=== PATIENT | male | born 1960 | race African-American/Black ===

== ENCOUNTER 2020-01-19 07:22 | Inpatient (IN) | payer MEDICAID ==
[~2020-01-19] VITALS: Ht 185.4 cm; Wt 96.9 kg
[2020-01-19] VITALS (27 sets, daily range): BP systolic 156–251; BP diastolic 84–123; BMI 29.4
[~2020-01-19 07:22] MED LIST: BACTRIM DS TABL1 TAB PO; BENTYL10 MG PO; HALDOL DECAN50 MG/ML; LOPID600 MG; NORVASC5 MG PO; NOVOLOG MIX 70/10 ML; PRILOSEC20 MG PO; TYLENOL 325 MG325 MG PO
--- NOTE | 2020-01-19 07:25 | NUR ---
PT ARRIVED WITH CORRECTIONAL OFFICERS AND CUFFS TO [facility]
--- NOTE | 2020-01-19 07:53 | NUR ---
LABS DRAWN INCLUDING BC X1
--- NOTE | 2020-01-19 08:06 | NUR ---
PT A/OX3. DR TREVINO AT BS EXPLAINING NEED FOR INTUBATION,.
[2020-01-19 08:21] LABS: BASOPHILS 0.2 % (0-2); EOSINOPHILS 0.7 % (0-7); HEMATOCRIT 34.4 % (42.0-54.0); HEMOGLOBIN 11.2 g/dL (13.5-17.5); IMMATURE GRANULOCYTES 0.3 % (0-5); LYMPHOCYTES 3.5 % (15-50); MCH 29.4 pg (26.0-34.0); MCHC 32.6 g/dL (31.0-37.0); MCV 90.3 fL (80.0-100.0); MEAN PLATELET VOLUME 9.9 fL (7.4-10.4); MONOCYTES 4.3 % (2-11); RBC 3.81 10x6/uL (4.20-6.10); RDW 17.6 % (11.5-14.5); WBC 10.3 10x3/uL (4.8-10.8)
[2020-01-19 08:24] LABS: PLATELET COUNT 173 10x3/uL (130-400)
[2020-01-19 08:30] LABS: APTT 34.5 SECONDS (22.8-39.4); INR 1.19 (0.85-1.17)
[2020-01-19 09:07] LABS: CALC OSMOLALITY 286 mosm/kg (275-300); CALCIUM 7.9 mg/dL (8.5-10.1); CARBON DIOXIDE 24.3 mmol/L (21.0-32.0); CHLORIDE - SERUM 99 mmol/L (98-107); GLUCOSE 130 mg/dL (74-106); POTASSIUM - SERUM 5.9 mmol/L (3.5-5.1); SODIUM 134 mmol/L (136-145); UREA NITROGEN 59 mg/dL (7-18); eGFR NON AFRICAN AMERICAN 6 mL/min (90-120)
[2020-01-19 09:25] LABS: ALBUMIN 3.7 g/dL (3.4-5.0); ALKALINE PHOSPHATASE 203 U/L (30-120); ALT (SGPT) 32 U/L (10-68); BILIRUBIN - TOTAL 0.62 mg/dL (0.2-1.3); CKMB 1.7 U/L (0.0-3.6); CREATINE KINASE 144 UL (21-232); PROTEIN - SERUM 7.9 g/dL (6.4-8.2)
[2020-01-19 09:26] LABS: PRO BNP 35480 pg/mL (0-125)
--- NOTE | 2020-01-19 09:31 | NUR ---
PT CONTINUES TO BITE ET TUBE EYES OPEN. CONTINUE TO TITRATE PROPFOL DRIP TO A SB OF 3.
--- NOTE | 2020-01-19 09:42 | NUR ---
SPOKE WITH DAVID, PHARMACIST RE: ORDER FOR REMDESIVIR REPORTS MED IS CONTRAINDICATED FOR CREATINE CLEARANCE LESS THAN 30. DR TREVINO NOTIFIED AND ORDER HELD FOR NOW
--- NOTE | 2020-01-19 09:56 | NUR ---
RESTING IN BED WITH EYES CLOSED. NAD NOTED
--- NOTE | 2020-01-19 10:23 | NUR ---
RESTLESS, BITING TUBE.
--- NOTE | 2020-01-19 12:15 | NUR ---
ECHO PERFORMED AT PER TECH
--- NOTE | 2020-01-19 12:24 | NUR ---
DIALYSIS NURSE AT BEDSIDE.
--- NOTE | 2020-01-19 12:51 | NUR ---
AWAKE, BITING TUBE. PROPOFOL TITRATED PER ORDERS. BALDEMAR FLAME DEGREASER AT BS
--- NOTE | 2020-01-19 13:03 | NUR ---
REPORT CALLED TO SHAGGY GEORGES
--- NOTE | 2020-01-19 13:20 | NUR ---
TRANSPORTED TO ICU #[id number] CONDITION STABLE
--- NOTE | 2020-01-19 13:45 | NUR ---
PT RECEIVED FROM ER, PT INTUBATED AND SEDATED ON PROPOFOL AT THIS TIME. BILAT WRIST RESTRAINTS IN PLACE. PT MOVED TO BED AND CONNECTED TO MONITORS
--- NOTE | 2020-01-19 15:00 | NUR ---
PT REASSESSMENT COMPLETED AT THIS TIME, PT GETING DIALYSIS AT THIS TIME, NURSE AT BEDSIDE, NO CHANGES NOTED FROM PREVIOUS EXAM
--- NOTE | 2020-01-19 17:00 | NUR ---
PT RESTING ON SEDATION AND VENT SUPPORT, NO CHANGES NOTED
--- NOTE | 2020-01-19 19:00 | NUR ---
PT ASSESSMENT COMPLETED AT THIS TIME, PT SEDATED ON VENT SUPPORT, NO CHNAGES NOTED
--- NOTE | 2020-01-19 21:23 | NUR ---
DR BURT CALLED ABOUT MEDICINE FOR BP ELEVATION WITH TRENDS OVER 200 SYS, NEW ORDERS NOTED
--- NOTE | 2020-01-19 23:00 | NUR ---
PT REASSESMENT COMPLETED AT THIS TIME, NO CHANGES NOTED FROM PREVIOUS EXAM, VSS, PT SEDATED ON VENT SUPPORT
[2020-01-20] VITALS (23 sets, daily range): BP systolic 131–193; BP diastolic 75–103; BMI 29.6
[2020-01-20 05:16] LABS: BASOPHILS 0 % (0-2); EOSINOPHILS 0 % (0-7); IMMATURE GRANULOCYTES 0.1 % (0-5); LYMPHOCYTES 5.7 % (15-50); MCH 28.1 pg (26.0-34.0); MCHC 31.1 g/dL (31.0-37.0); MCV 90.3 fL (80.0-100.0); MEAN PLATELET VOLUME 9.6 fL (7.4-10.4); MONOCYTES 5.2 % (2-11); RDW 17.8 % (11.5-14.5)
[2020-01-20 05:24] LABS: HEMOGLOBIN 8.7 g/dL (13.5-17.5); PLATELET COUNT 128 10x3/uL (130-400); WBC 7.3 10x3/uL (4.8-10.8)
[2020-01-20 06:25] LABS: ALBUMIN 3.2 g/dL (3.4-5.0); ANION GAP 16.2 mmol/L (8-16); BILIRUBIN - TOTAL 0.67 mg/dL (0.2-1.3); C-REACTIVE PROTEIN 0.8 mg/dL (0.0-0.9); CARBON DIOXIDE 24.8 mmol/L (21.0-32.0); CREATININE - SERUM 7.1 mg/dL (0.6-1.3); MAGNESIUM - SERUM 1.8 mg/dL (1.8-2.4); PROTEIN - SERUM 6.9 g/dL (6.4-8.2); T4 THYROXIN - FREE 1.15 ng/dL (0.76-1.46); THYROID STIMULATING HORMONE 0.34 uIU/mL (0.36-3.74)
--- NOTE | 2020-01-20 07:30 | NUR ---
REPORT RECEIVED. PT IN DROPLET PRECAUTIONS FOR COVID. PT IS INTUBATED. SETTINGS PER RT. PT HAS A RIGHT FOREARM IV WITH PROPOFOL INFUSING INTO HIS RIGHT FOREARM. PT IS RENAL. HAS A RIGHT CHEST PORT THAT IS USED FOR DIALYSIS WHICH IS MWF. PT HAS NG TO LIS. PT IS ANURIC. VSS. WILL CONTINUE TO MONITOR.
--- NOTE | 2020-01-20 09:15 | NUR ---
PT RESTING QUIETLY. VSS. WILL CONTINUE TO MONITOR.
--- NOTE | 2020-01-20 13:22 | NUR ---
LOWERING SEDATION MEDICATION TO ATTEMPT CPAP TRIALS. VSS. WILL CONTINUE TO MONITOR.
--- NOTE | 2020-01-20 14:09 | NUR ---
ELEVATED BP. PRN HYDRALAZINE GIVEN. CURRENT BP READING 193/74. WILL MONITOR. 1200 PUT OUT VIA NG TUBE CANNISTER. NEW CANNISTER PLACED AND HOOKED BACK UP TO LIS.
--- NOTE | 2020-01-20 14:53 | EC ---
PATIENT:RASHID DON DATE OF SERVICE: 01/19/20 SEX: M MEDICAL RECORD: [id number] DATE OF : 62 LOCATION:[facility] D230 AGE OF PATIENT: 59 ADMISSION DATE: 01/19/20 REFERRING PHYSICIAN: INTERPRETING PHYSICIAN: NOEMI HALL MD ECHOCARDIOGRAM REPORT ECHO CHARGES 4 ECHO COMPLETE Date: 01/19/20 CLINICAL DIAGNOSIS: CARDIOMEGALY ECHOCARDIOGRAPHIC MEASUREMENTS (adult normal given) AC root (d.<3.7cm) 2.6 cm LV Septum d (<1.2 cm> 1.2 cm Valve Excursion 1.7 cm LV Septum (systole) 1.8 cm Left Atria (s.<4.0cm> 4.1 cm LVPW d(<1.2cm) 1.0 cm RV (d.<2.3cm) 3.6 cm LVPW (sytole) 1.1 cm LV diastole(<5.6CM) 5.9 cm MV E-F(>70mm/sec) cm LV systole 4.3 cm LVOT Diameter 1.7 cm MV exc.(>10mm) cm Est.ejection fraction (50-75%) % DOPPLER: LVIT cm/sec A 122 cm/sec E 108 cm/sec LA cm/sec RVSP 36.6 mmHg LVOT 100 cm/sec AOP1/2T m/s Asc. Ao 145 cm/sec RVOT 67 cm/sec RA cm/sec PA 89 cm/sec AV Gradient Peak 8.4 mmHg AV Mean 4.3 mmHg AV Area 1.7 cm MV Gradient Peak 5.6 mmHg MV Mean 3.3 mmHg MV Area cm COMMENTS: Telephoto Engineer: Wayne AVENDANO Industrial Machine Operator: 3 Dr. Riley TAPE# PACS Pericardial Effusion Y DATE OF SERVICE: Adequate 2D, color-flow imaging, spectral Doppler, and M-Mode LVH is present. LV internal dimension is normal. Wall motion is normal. EF is greater than or equal to 55%. Aortic valve is tricuspid. No evidence of stenosis by Doppler interrogation. Left atrium is upper limits of normal at 4.1 cm. Mitral valve shows no prolapse. Mild MR. Right-sided chambers are grossly normal. Mild TR. Incidental note is made of moderate pericardial effusion. ECHOCARDIOGRAM REPORT [id number] RASHID DON TRANSINT:[id number] Voice Confirmation ID: [id number] DOCUMENT ID: [id number] NOEMI HALL MD at 1453 CC: [id number] DICTATION DATE: 01/20/20812 SENIOR ENVIRONMENTAL TECHNICIAN: 01/20/20 0908 ADM IN [facility] [address] [place] [address]
--- NOTE | 2020-01-20 15:26 | MORECARE ---
CASE MANAGEMENT DISCHARGE SUMMARY PATIENT: RASHID DON UNIT: [id number] ADM DATE: 01/19/20 AGE: 59 : 62 SEX: M ROOM/BED: D.2309 AUTHOR: DENIA LUIS PHYSICIAN: REFERRING PHYSICIAN: DESTINI WYNNE MD DATE OF SERVICE: 01/20/20 Discharge Plan Patient Name: [facility]ASH[facility] DON [facility] [facility] 1960 Planned Disposition: Court\Law Enforcement Anticipated Discharge Date: Discharge Date: Expected LOS: Initial Reviewer: [email or web address] Initial Review Date: 01/19/2020 Generated: 01/20/20 4:25 pm Patient Name: RASHID DON Page [id number] at 1526 All edits/amendments must be made on the electronic document DICTATION DATE: 01/20/20 1525 MONITORING ANALYST: MAXINE 01/20/20 1525 RPT#: [id number] DC DATE: STATUS: ADM IN [facility] [address] [place] [address] END OF REPORT
--- NOTE | 2020-01-20 15:33 | MORECARE ---
CASE MANAGEMENT DISCHARGE SUMMARY PATIENT: RASHID DON UNIT: [id number] ADM DATE: 01/19/20 AGE: 59 : 62 SEX: M ROOM/BED: D.2309 AUTHOR: DENIA LUIS PHYSICIAN: REFERRING PHYSICIAN: DESTINI WYNNE MD DATE OF SERVICE: 01/20/20 Discharge Plan Patient Name: [facility]ASHID DON [facility] : 1960 Planned Disposition: Court\Law Enforcement Anticipated Discharge Date: Discharge Date: Expected LOS: Initial Reviewer: [email or web address] Initial Review Date: 01/19/2020 Generated: 01/20/20 4:33 pm DCP- Discharge Planning Updated by [email or web address]: Inocencia Taylor on 01/20/20 2:[address] [facility]. HE WILL BE ESCORTED BY THE OFFICERS AT TIME OF DISCHARGE VIA THE [facility]. MD TO MD COMMUNICATIION WILL BE ARRANGED PRIOR TO DISCHARGE. NURSES WILL CALL REPORT. CM TO FOLLOW TO ASSIST IS APPROPRIATE. Last DP export: 01/20/20 2:26 p Patient Name: RASHID DON Page [phone] at 1533 All edits/amendments must be made on the electronic document DICTATION DATE: 01/20/20 153 BANKRUPTCY PARALEGAL: MAXINE 01/20/20 1533 RPT#: [id number] DC DATE: STATUS: ADM IN [facility] [address] [place] [address] END OF REPORT
--- NOTE | 2020-01-20 15:40 | NUR ---
PT RESTING QUIETLY. VSS. WILL CONTINUE TO MONITOR.
--- NOTE | 2020-01-20 16:32 | NUR ---
PT RECEIVING DIALYSIS AT THIS TIME.
--- NOTE | 2020-01-20 22:31 | NUR ---
1900- report recieved. see adl see assessment.
[2020-01-21] VITALS (22 sets, daily range): BP systolic 150–210; BP diastolic 8–116
--- NOTE | 2020-01-21 01:28 | NUR ---
spoke with kameron from [facility] regarding antibiotic. stated she would speak with pharmacist and call me back.
--- NOTE | 2020-01-21 01:33 | NUR ---
spoke with pharmacist and stated that he would mess around with order to see if it crosses over to pyxis. stated he would call during dayshift to figure out if they are able to scan it then.
--- NOTE | 2020-01-21 01:39 | NUR ---
attempted to try and pull med but it is not crossing over from pyxis. pulled from inventory count and given.
--- NOTE | 2020-01-21 03:27 | NUR ---
i and o done at this time.
--- NOTE | 2020-01-21 03:28 | NUR ---
0100- see adl. no acute distress. no bm at this time. blood pressure control.
[2020-01-21 05:05] LABS: BASOPHILS 0.1 % (0-2); EOSINOPHILS 0 % (0-7); IMMATURE GRANULOCYTES 0.3 % (0-5); LYMPHOCYTES 7.2 % (15-50); MCH 28.7 pg (26.0-34.0); MCHC 31.7 g/dL (31.0-37.0); MCV 90.6 fL (80.0-100.0); MONOCYTES 6.8 % (2-11); NEUTROPHILS 85.6 % (40-80); RDW 18.8 % (11.5-14.5); WBC 7.8 10x3/uL (4.8-10.8)
[2020-01-21 05:20] LABS: HEMATOCRIT 34.7 % (42.0-54.0); PLATELET COUNT 171 10x3/uL (130-400); RBC 3.83 10x6/uL (4.20-6.10)
[2020-01-21 05:46] LABS: ALBUMIN 3.1 g/dL (3.4-5.0); ANION GAP 18.1 mmol/L (8-16); BILIRUBIN - TOTAL 0.67 mg/dL (0.2-1.3); CALCIUM 7.4 mg/dL (8.5-10.1); CARBON DIOXIDE 23.7 mmol/L (21.0-32.0); CREATININE - SERUM 5.7 mg/dL (0.6-1.3); MAGNESIUM - SERUM 1.8 mg/dL (1.8-2.4); POTASSIUM - SERUM 3.8 mmol/L (3.5-5.1); PROTEIN - SERUM 6.8 g/dL (6.4-8.2)
--- NOTE | 2020-01-21 07:00 | NUR ---
pt report received from maintenance supervisor 2nd shift nurse. no acute signs of distress noted. shift assessment completed. pt bp elevated. prn medication given.
--- NOTE | 2020-01-21 09:19 | NUR ---
pt resting in bed. able to follow some commands. will continue to monitor
--- NOTE | 2020-01-21 10:30 | NUR ---
PT SWITCHED OVER TO CPAP ON VENT. TOLERATING WELL. NO SIGNS OF DISTRESS NOTED. WILL CONTINUE TO MONITOR
--- NOTE | 2020-01-21 11:15 | NUR ---
PT RESTING IN BED. STILL ON CPAP MODE. NO COMPLAINTS NOTED. THROAT HURTS. INSTRUCTED PT THAT HIS THROAT WILL BE SORE BECAUSE OF THE ETT. REASSESSMENT COMPLETED. WILL CONTINUE TO MONITOR
[2020-01-21 12:11] LABS: HEP B CORE AB TOTAL Positive (Negative); HEPATITIS C ANTIBODY >11.0 S/CO RAT (0.0-0.9)
--- NOTE | 2020-01-21 13:50 | NUR ---
PT EXTUBATED PER RT. PLACED ON 3L NC. TOLERATING WELL. NO SIGNS OF DISTRESS NOTED. ASKED ABOUT DIALYSIS. TOLD HIM HE RECEIVED IT THE PAST TWO DAYS. WILL CONTINUE TO MONITOR
--- NOTE | 2020-01-21 15:15 | NUR ---
PT RESTING IN BED. TOLERATING SIPS OF WATER AND PUDDING. NO S/S OF CHOKING OR ASPIRATION. WILL CONTINUE TO MONITOR
--- NOTE | 2020-01-21 17:00 | NUR ---
PT EATING SANDWICH. NO SIGNS OF CHOKING NOTED. WILL CONTINUE TO MONITOR
[2020-01-22] VITALS (15 sets, daily range): BP systolic 139–204; BP diastolic 68–103; Ht 185.4 cm; Wt 96.9 kg
--- NOTE | 2020-01-22 01:14 | NUR ---
1929-TOOK PATIENT ANOTHER [facility]. STATES HE IS VERY HUNGRY. 2029- PATIENT C/O STILL BEING HUNGRY. GIVEN PUDDING. ASKED FOR A COKE. EDUCATED ON THE PHOSPHORUS CONTENT AND PATIENT STATED HE FELT FINE, THAT HIS PHOSPHORUS IS FINE. 2199-EYES CLOSED, DENIES ANY COMPLAINTS. 2299-REASSESSMENT COMPLETED. 010-EYES CLOSED. INDEPENDENT WITH REPOSITIONING
--- NOTE | 2020-01-22 03:45 | NUR ---
0300-REASSESSMENT COMPLETED. NO CHANGES SINCE LAST ASSESSMENT
--- NOTE | 2020-01-22 05:19 | NUR ---
CHG BATH WITH COMPLETE LINEN CHANGE
[2020-01-22 05:28] LABS: BASOPHILS 0 % (0-2); EOSINOPHILS 0.3 % (0-7); HEMATOCRIT 35.1 % (42.0-54.0); HEMOGLOBIN 11.4 g/dL (13.5-17.5); IMMATURE GRANULOCYTES 0.5 % (0-5); MCH 29.5 pg (26.0-34.0); MCHC 32.5 g/dL (31.0-37.0); MCV 90.9 fL (80.0-100.0); MEAN PLATELET VOLUME 9.6 fL (7.4-10.4); MONOCYTES 7.9 % (2-11); NEUTROPHILS 79.3 % (40-80); PLATELET COUNT 153 10x3/uL (130-400); RBC 3.86 10x6/uL (4.20-6.10); RDW 18.5 % (11.5-14.5); WBC 9.3 10x3/uL (4.8-10.8)
[2020-01-22 05:48] LABS: ALBUMIN 3.3 g/dL (3.4-5.0); ANION GAP 15.8 mmol/L (8-16); BILIRUBIN - TOTAL 0.9 mg/dL (0.2-1.3); CALCIUM 8.1 mg/dL (8.5-10.1); POTASSIUM - SERUM 3.8 mmol/L (3.5-5.1); PROTEIN - SERUM 7.1 g/dL (6.4-8.2)
[2020-01-22 05:49] LABS: CREATININE - SERUM 8.5 mg/dL (0.6-1.3)
--- NOTE | 2020-01-22 07:00 | NUR ---
BEDSIDE REPORT RECEIVED. SHIFT ASSESSMENT COMPLETED PER FLOWSHEET, SEE FLOWSHEET FOR INFORMATION. NO ACUTE NEEDS OR DISTRESS NOTED AT THIS TIME. VSS. WILL CONT TO MONITOR.
--- NOTE | 2020-01-22 09:00 | NUR ---
ANSWERED PT CALL LIGHT, PT REQUEST MORE FOOD. PT DENIES ALL FOOD CHOICES GIVEN. ASKED IF PT COULD WAIT FOR LUNCH, PT AGREES. WILL CONT TO MONITOR.
--- NOTE | 2020-01-22 11:00 | NUR ---
REASSESSMENT COMPLETED PER FLOWSHEET, SEE FLOWSHEET FOR INFORMATION. NO ACUTE NEEDS OR DISTRESS NOTED AT THIS TIME. VSS. WILL CONT TO MONITOR.
--- NOTE | 2020-01-22 13:00 | NUR ---
AND AT BEDSIDE, SPOKE WITH BOTH AND [place] ORDER RECEIVED. WILL CONT TO MONITOR.
--- NOTE | 2020-01-22 15:00 | NUR ---
REASSESSMENT COMPLETED PER FLOWSHEET, SEE FLOWSHEET FOR INFORMATION. PT RESTING IN BED WITH EYS CLOSED. NO ACUTE NEEDS OR DISTRESS NOTED AT THIS TIME. VSS. WILL CONT TO MONITOR.
--- NOTE | 2020-01-22 15:00 | NUR ---
PT RESTING IN BED WITH EYES OPEN. WILL CONT TO MONITOR.
--- NOTE | 2020-01-22 17:32 | NUR ---
DIALYSIS NURSE AT BEDSIDE. WILL CONT TO MONITOR. VSS.
--- NOTE | 2020-01-22 20:05 | NUR ---
1900-DIALYSIS NURSE AT BEDSIDE, HD GOING.
--- NOTE | 2020-01-22 22:21 | NUR ---
2100- FINISHED DIALYSIS. 4L PULLED PER NURSE. DENIES ANY NEEDS 1020-TRANSFER TO 2130. REPORT GIVEN TO GABI
--- NOTE | 2020-01-22 22:26 | NUR ---
RECEIVED REPORT AMY COON, ICU TRANSFER, PT IS A&O, R.CHEST HEMOSPLIT, LFA-SL, HANDCUFFED TO BED, DENIES ANY NEEDS AT THIS TIME, PROVIDED ICEWATER, CALL LIGHT IN REACH, WILL CONTINUE PLAN OF CARE
--- NOTE | 2020-01-23 00:50 | NUR ---
SLEEPING, NO DISTRESS NOTICED AT THIS TIME, CALL LIGHT IN REACH
--- NOTE | 2020-01-23 02:10 | NUR ---
PRAVIN RN GAVE APRESOLINE FOR BP 193/86
[2020-01-23 04:00] VITALS: BP 193/102
--- NOTE | 2020-01-23 05:15 | NUR ---
PT ASSESSED PER LINING CLEANER PRIOR TO TRANSFER TO THIS UNIT. RESTING COMFORTABLY AT THIS TIME.
[2020-01-23 06:01] LABS: BASOPHILS 0.1 % (0-2); EOSINOPHILS 0.6 % (0-7); HEMATOCRIT 34.1 % (42.0-54.0); HEMOGLOBIN 10.8 g/dL (13.5-17.5); IMMATURE GRANULOCYTES 0.9 % (0-5); LYMPHOCYTES 16.5 % (15-50); MCH 28.9 pg (26.0-34.0); MCHC 31.7 g/dL (31.0-37.0); MCV 91.2 fL (80.0-100.0); MEAN PLATELET VOLUME 9.5 fL (7.4-10.4); MONOCYTES 11.1 % (2-11); NEUTROPHILS 70.8 % (40-80); PLATELET COUNT 150 10x3/uL (130-400); RBC 3.74 10x6/uL (4.20-6.10); RDW 18.5 % (11.5-14.5)
[2020-01-23 06:20] LABS: WBC 6.7 10x3/uL (4.8-10.8)
[2020-01-23 06:40] LABS: ALBUMIN 3.1 g/dL (3.4-5.0); BILIRUBIN - TOTAL 0.88 mg/dL (0.2-1.3); CALCIUM 8.4 mg/dL (8.5-10.1); CARBON DIOXIDE 27.5 mmol/L (21.0-32.0); CREATININE - SERUM 7.4 mg/dL (0.6-1.3); MAGNESIUM - SERUM 1.8 mg/dL (1.8-2.4); POTASSIUM - SERUM 3.5 mmol/L (3.5-5.1); PROTEIN - SERUM 6.9 g/dL (6.4-8.2)
--- NOTE | 2020-01-23 09:03 | NUR ---
PT AWAKE AND OREINTED WHEN I ENTERED ROOM. GO HIMSELF SITTING UP IN BED TO EAT BREAKFAST. TOOK MEDICATIONS WITHOUT COMPLICATIONS. NO COMPLAINTS OR CONCERNS STATED AT THIS TIME. CL IN REACH,S RX2.
--- NOTE | 2020-01-23 10:13 | NUR ---
I have reviewed this patient and I concur with the Shift Assessment completed by the Licensed Practical Nurse today this shift.
--- NOTE | 2020-01-23 19:15 | NUR ---
RECEIVED REPORT, WILL ASSUME CARE OF PT, DENIES ANY NEEDS AT THIS TIME, BED IS LOW, SRX2, CALL LIGHT IN REACH, WILL CONTINUE PLAN OF CARE
[2020-01-23 20:29] VITALS: BP 189/95
--- NOTE | 2020-01-23 20:56 | NUR ---
PRAVIN COON GAVE PRN APRESOLINE FOR BP189/95
--- NOTE | 2020-01-23 23:07 | NUR ---
PRAVIN RN GAVE 10MG LABETOLOL FOR BP-191/94
[2020-01-23 23:56] VITALS: BP 191/94
[2020-01-24 03:50] VITALS: BP 168/86
[2020-01-24 05:47] LABS: BASOPHILS 0.2 % (0-2); EOSINOPHILS 8.4 % (0-7); HEMATOCRIT 32.9 % (42.0-54.0); HEMOGLOBIN 10.5 g/dL (13.5-17.5); IMMATURE GRANULOCYTES 2.7 % (0-5); LYMPHOCYTES 16.2 % (15-50); MCH 29.2 pg (26.0-34.0); MCHC 31.9 g/dL (31.0-37.0); MCV 91.6 fL (80.0-100.0); MEAN PLATELET VOLUME 9.6 fL (7.4-10.4); MONOCYTES 9.8 % (2-11); NEUTROPHILS 62.7 % (40-80); PLATELET COUNT 152 10x3/uL (130-400); RBC 3.59 10x6/uL (4.20-6.10); RDW 18.5 % (11.5-14.5); WBC 5.5 10x3/uL (4.8-10.8)
[2020-01-24 06:15] LABS: ALBUMIN 3.1 g/dL (3.4-5.0); ANION GAP 18.5 mmol/L (8-16); BILIRUBIN - TOTAL 0.75 mg/dL (0.2-1.3); CALCIUM 8.2 mg/dL (8.5-10.1); CARBON DIOXIDE 24.1 mmol/L (21.0-32.0); MAGNESIUM - SERUM 1.7 mg/dL (1.8-2.4); POTASSIUM - SERUM 3.6 mmol/L (3.5-5.1); PROTEIN - SERUM 6.8 g/dL (6.4-8.2)
[2020-01-24 06:16] LABS: CREATININE - SERUM 9.4 mg/dL (0.6-1.3)
[2020-01-24 08:35] VITALS: BP 203/113
--- NOTE | 2020-01-24 09:46 | NUR ---
PT ALERT ANDORIENTED WHEN I ENTERED ROOM WITH BREAKFAST. TOOK ORAL MEDICATIONS WITHOUT COMPLICATIONS. NO COMPLAINTS OR CONCERNS AT THIS TIME. ASSITED WITH FIXING TELIVISION. ALL QUESTIONS ANSWERED TO THE BEST OF MY ABILITY. CLEANED ROOM. CL IN REACH, SRX2. GUARD IN 2127 PER PROTOCOL.
--- NOTE | 2020-01-24 11:29 | MORECARE ---
CASE MANAGEMENT DISCHARGE SUMMARY PATIENT: RASHID DON UNIT: [id number] ADM DATE: 01/19/20 AGE: 59 : 62 SEX: M ROOM/BED: D.2131 AUTHOR: DENIA LUIS PHYSICIAN: REFERRING PHYSICIAN: DESTINI WYNNE MD DATE OF SERVICE: 01/24/20 Discharge Plan Patient Name: RASHID DON Facility: [facility]:[place] : 1960 Planned Disposition: Court\Law Enforcement Anticipated Discharge Date: Discharge Date: Expected LOS: Initial Reviewer: [email or web address] Initial Review Date: 01/19/2020 Generated: 01/24/20 12:28 pm Comments DCP- Discharge Planning Updated by [email or web address]: Shamika Fong on 01/24/20 10:[address] Patient Name: RASHID DON Encounter No: [id number] : 1960 Primary Insurance: MEDICAID SNF PENDING Anticipated DC Date: Planned Disposition: Court\Law Enforcement External Planned Provider: : DCP follow-up note: RILEY spoke with Swetha at [facility] regarding pending DC. Swetha koch MD can call Dr. Simmons for doc-to-doc at [phone]. The patient will return to the [place] unit and nursing can call report to [phone]. Patient will be transported by [facility] van with guard. Case management will follow and assist as needed. Shamika Fong DCP- Discharge Planning Updated by [email or web address]: Inocencia Taylor on 01/20/20 2:[address] THIS PATIENT HAS BEEN ADMITTED FROM THE [place] [facility]. HE WILL BE ESCORTED BY THE OFFICERS AT TIME OF DISCHARGE VIA THE [facility] VAN. MD TO MD COMMUNICATIION WILL BE ARRANGED PRIOR TO DISCHARGE. NURSES WILL CALL REPORT. CM TO FOLLOW TO ASSIST IS APPROPRIATE. Last DP export: 01/20/20 2:33 p Patient Name: RASHID DON Page [phone] at 1129 All edits/amendments must be made on the electronic document DICTATION DATE: 01/24/20 1128 PRACTICE BILLING ASSOCIATE: MAXINE 01/24/20 1128 RPT#: [id number] DC DATE: STATUS: ADM IN [facility] [address] [place] [address] END OF REPORT
--- NOTE | 2020-01-24 13:38 | NUR ---
Nutrition Follow-up: Pt in droplet isolation; covid-19 positive. Nursing reports pt eating well. HD Sat. Noted plans to d/c soon. Diet: Renal Wt: 213# (01/21); 225# (01/19); 222.9# (01/18) No BMs recorded Labs noted: Na 135, Ca 8.2, Mg 1.7, Alb 3.1 Meds noted: Pepcid, electrolyte protocol -Encourage PO intake and honor food preferences within diet restrictions. -Monitor wt. -RD following.
--- NOTE | 2020-01-24 17:41 | NUR ---
I have reviewed this patient and I concur with the Shift Assessment completed by the Licensed Practical Nurse today this shift.
[2020-01-24 18:40] VITALS: BP 192/91
--- NOTE | 2020-01-24 19:30 | NUR ---
RECEIVED REPORT, WILL ASSUME CARE OF PT, ASKING FOR A DRINK, WILL PROVIDE, DENIES ANY OTHER NEEDS AT THIS TIME, BED IS LOW, SRX2, CALL LIGHT IN REACH, WILL CONTINUE PLAN OF CARE
[2020-01-24 19:46] VITALS: BP 195/102
[2020-01-25 00:14] VITALS: BP 183/91
--- NOTE | 2020-01-25 04:51 | NUR ---
I have reviewed this patient and I concur with the Shift Assessment completed by the Licensed Practical Nurse today this shift.
[2020-01-25 05:31] VITALS: BP 189/82
[2020-01-25 06:24] LABS: BASOPHILS 0 % (0-2); EOSINOPHILS 1.6 % (0-7); HEMATOCRIT 31.8 % (42.0-54.0); HEMOGLOBIN 10.5 g/dL (13.5-17.5); IMMATURE GRANULOCYTES 0.7 % (0-5); LYMPHOCYTES 18.1 % (15-50); MCH 29.9 pg (26.0-34.0); MCV 90.6 fL (80.0-100.0); MEAN PLATELET VOLUME 9.7 fL (7.4-10.4); MONOCYTES 14.9 % (2-11); NEUTROPHILS 64.7 % (40-80); PLATELET COUNT 151 10x3/uL (130-400); RBC 3.51 10x6/uL (4.20-6.10); RDW 18.6 % (11.5-14.5); WBC 5.6 10x3/uL (4.8-10.8)
[2020-01-25 06:49] LABS: ALBUMIN 3.3 g/dL (3.4-5.0); ANION GAP 21.7 mmol/L (8-16); BILIRUBIN - TOTAL 0.77 mg/dL (0.2-1.3); CALCIUM 7.7 mg/dL (8.5-10.1); CARBON DIOXIDE 21.2 mmol/L (21.0-32.0); MAGNESIUM - SERUM 1.8 mg/dL (1.8-2.4); POTASSIUM - SERUM 3.9 mmol/L (3.5-5.1)
[2020-01-25 08:09] VITALS: BP 201/105
--- NOTE | 2020-01-25 08:18 | NUR ---
PT RECEIVED ASLEEP BUT AROUSES EASILY. DRY COUGH NOTED. BP ELEVATED, NOT NEW. PRIOR SHIFT GAVE IV MED, ORAL MEDS GIVEN NOW, WILL RECHECK AND GIVE IV DOSE PRN IF NEEDED. GUARD OUTSIDE OF ROOM.
[2020-01-25] MEDS ORDERED: DECADRON4 MG PO (10:01)
[2020-01-25] MEDS ORDERED: OMNICEF300 MG PO (10:01)
[2020-01-25] MEDS ORDERED: CATAPRES0.1 MG PO (10:16)
--- NOTE | 2020-01-25 10:36 | NUR ---
I PAGED GUICHO SHAVER TO MAKE SURE THE DOC TO DOC WAS DONE AND HE REPLIED "YES".
--- NOTE | 2020-01-25 10:56 | NUR ---
REPORT CALLED TO [facility] AT [facility]. WAITING FOR TRANSPORT BACK.
--- NOTE | 2020-01-25 12:01 | NUR ---
PT MASKED AND LOADED IN WHEELCHAIR FOR TRANSPORT. GUARDS IN TOW. IV REMOVED. HEMOSPLIT IN PLACE.
--- NOTE | 2020-01-25 14:42 | MORECARE ---
CASE MANAGEMENT DISCHARGE SUMMARY PATIENT: RASHID DON UNIT: [id number] ADM DATE: 01/19/20 AGE: 59 : 62 SEX: M ROOM/BED: D.2131 AUTHOR: DENIA LUIS PHYSICIAN: REFERRING PHYSICIAN: DESTINI WYNNE MD DATE OF SERVICE: 01/25/20 Discharge Plan Patient Name: RASHID DON Facility: [facility]:[place] : 1960 Planned Disposition: Court\Law Enforcement Anticipated Discharge Date: Discharge Date: 01/25/2020 Expected LOS: Initial Reviewer: [email or web address] Initial Review Date: 01/19/2020 Generated: 01/25/20 3:42 pm Comments DCP- Discharge Planning Updated by [email or web address]: Shamika Fong on 01/24/20 10:[address] Patient Name: RASHID DON Encounter No: [id number] : 1960 Primary Insurance: MEDICAID JAIL PENDING Anticipated DC Date: Planned Disposition: Court\Law Enforcement External Planned Provider: : DCP follow-up note: CM spoke with Swetha at [facility] regarding pending DC. Swetha koch MD can call Dr. Simmons for doc-to-doc at [phone]. The patient will return to the [place] unit and nursing can call report to [phone]. Patient will be transported by [facility] van with guard. Case management will follow and assist as needed. Shamika Fong DCP- Discharge Planning Updated by [id number]: Inocencia Taylor on 01/20/20 2:[address] THIS PATIENT HAS BEEN ADMITTED FROM THE [place] [facility]. HE WILL BE ESCORTED BY THE OFFICERS AT TIME OF DISCHARGE VIA THE [facility] VAN. MD TO MD COMMUNICATIION WILL BE ARRANGED PRIOR TO DISCHARGE. NURSES WILL CALL REPORT. CM TO FOLLOW TO ASSIST IS APPROPRIATE. Last DP export: 01/24/20 10:29 a Patient Name: RASHID DON Page [phone] at 1442 All edits/amendments must be made on the electronic document DICTATION DATE: 01/25/201441 EDGE BANDING OFF BEARER: MAXINE 01/25/20 144 RPT#: [id number] DC DATE:01/25/20 STATUS: DIS IN [facility] [address] [place] [address] END OF REPORT
== END 2020-01-25 12:02 | DRG 208 ==
LOC: D.ER 07:22 → D.ICU 14:01 → D.M2 01-22 22:04
PROVIDERS: Family Medicine; Internal Medicine Nephrology; ADMIT Emergency Medicine; ATTEND Emergency Medicine
PROC: 5A1935Z Respiratory Ventilation, Less than 24 Consecutive Hours (ICD-10-PCS; principal; 2020-01-19)
PROC: 0BH17EZ Insertion of Endotracheal Airway into Trachea, Via Natural or Artificial Opening (ICD-10-PCS; 2020-01-19)
DX: U07.1 COVID-19 (principal); N18.6 End stage renal disease; J96.01 Acute respiratory failure with hypoxia; J18.9 Pneumonia, unspecified organism; E87.1 Hypo-osmolality and hyponatremia; I16.9 Hypertensive crisis, unspecified; I12.0 Hypertensive chronic kidney disease with stage 5 chronic kidney disease or end stage renal disease; N25.81 Secondary hyperparathyroidism of renal origin; E87.5 Hyperkalemia; D63.1 Anemia in chronic kidney disease; Z99.2 Dependence on renal dialysis; E11.22 Type 2 diabetes mellitus with diabetic chronic kidney disease; B19.20 Unspecified viral hepatitis C without hepatic coma

== ENCOUNTER 2020-11-07 07:16 | Day surgery (SDC) | payer OTHER ==
[~2020-11-07] VITALS: Ht 185.4 cm; Wt 108.2 kg
[~2020-11-07 07:16] MED LIST changes: +CATAPRES0.1 MG PO; +DECADRON4 MG PO; +OMNICEF300 MG PO
[2020-11-07 07:56] VITALS: Ht 185.4 cm; Wt 108.2 kg
[2020-11-07 08:21] LABS: BASOPHILS 0.4 % (0-2); EOSINOPHILS 0.8 % (0-7); HEMATOCRIT 33.1 % (42.0-54.0); HEMOGLOBIN 10.5 g/dL (13.5-17.5); IMMATURE GRANULOCYTES 0.4 % (0-5); LYMPHOCYTE ABS# 1.13 10x3/uL (1.32-3.57); LYMPHOCYTES 23.8 % (15-50); MCH 30.4 pg (26.0-34.0); MCHC 31.7 g/dL (31.0-37.0); MCV 95.9 fL (80.0-100.0); MEAN PLATELET VOLUME 10.6 fL (7.4-10.4); NEUTROPHIL ABS# 2.96 10x3/uL (1.78-5.38); NEUTROPHILS 62.6 % (40-80); PLATELET COUNT 312 10x3/uL (130-400); RBC 3.45 10x6/uL (4.20-6.10); RDW 14.3 % (11.5-14.5); WBC 4.7 10x3/uL (4.8-10.8)
[2020-11-07 08:26] LABS: ANION GAP 21.6 mmol/L (8-16); CARBON DIOXIDE 21.4 mmol/L (21.0-32.0); CREATININE - SERUM 9.6 mg/dL (0.6-1.3)
--- NOTE | 2020-11-07 12:08 | HP ---
PATIENT: RASHID DON MEDICAL RECORD: [id number] ACCOUNT: [id number] LOCATION:[place] : 62 ADMISSION DATE: 11/07/20 PCP: NIEVES GONZALEZ HISTORY AND PHYSICAL EXAMINATION CHIEF COMPLAINT: Reflux. HISTORY OF PRESENT ILLNESS: The patient states that at night he refluxes up into the back of his throat and sometimes chokes and coughs. He does not admit to any odynophagia or dysphagia. He states that he has had hematemesis in the past. He has had no rectal bleeding and no melena. PAST MEDICAL AND SURGICAL HISTORY: Asthma, sleep apnea, not on CPAP, gastroesophageal reflux, schizophrenia, seizures, end-stage renal disease, hepatitis C, history of left upper extremity AV fistula placement. MEDICINES AT [facility]: Reviewed. ALLERGIES: IBUPROFEN. PHYSICAL EXAMINATION: GENERAL: The patient does not appear acutely ill. He does not appear chronically ill. VITAL SIGNS: Reviewed. EARS: External ears appear normal. EYES: Extraocular movements are intact. NECK: Trachea is midline. CHEST: No intercostal retractions. PULMONARY: Nonlabored. No stridor. ABDOMEN: Epigastric tenderness. IMPRESSION: Gastroesophageal reflux, which is volume reflux. PLAN: Will be EGD, possible esophageal dilation. TRANSINT:[id number] Voice Confirmation ID: [id number] DOCUMENT ID: [id number] GRECIA THOMPSON MD at 1208 CC: NIEVES GONZALEZ [id number] DICTATION DATE: 11/07/20 1137 SCANNING CLERK: 11/07/20 1204 [id number] [place] [address]
--- NOTE | 2020-11-07 12:44 | NUR ---
DC INSTRUCTIONS GIVEN TO PT. STATES UNDERSTANDING. DC'D IV CATH FULLY INTACT. PT LEFT UNIT W/ GUARDS AT 1240
--- NOTE | 2020-11-07 13:19 | OP ---
PATIENT NAME: RASHID DON MEDICAL RECORD: [id number] :62 LOCATION:D.OPS ADMISSION DATE: SURGEON: COLE THOMPSON MD DATE OF OPERATION: 11/07/2020 PREOPERATIVE DIAGNOSIS: Volume gastroesophageal reflux. POSTOPERATIVE DIAGNOSES: 1. Volume gastroesophageal reflux with large hiatal hernia. 2. Discontinuous Z-line, which could indicate Solomon's esophagus. 3. Moderate prepyloric gastritis. 4. Lesion in the fundus, which may represent a polyp. 5. Schatzki's ring. PROCEDURES: 1. Esophagogastroduodenoscopy with antral and distal esophageal biopsies. 2. Hot biopsy forceps polypectomy x1. 3. Balloon dilation of the entire length of the esophagus with 54-Tajik. SURGEON: Cole Thompson MD FACE BOSS: None. ANESTHESIA: IV sedation. COMPLICATIONS: None. The risks, possible complications, and alternatives of the procedure were explained to the patient. He elects to proceed. ENDOSCOPIC COURSE: The patient was conveyed to endoscopy suite electively on 11/07/2020. IV sedation was induced by the anesthesia staff. A bite block was inserted. A gastroscope was inserted into the mouth. It was advanced easily into the hypopharynx. The esophagus was easily intubated as were the stomach and duodenum. Upon withdrawal, retroflexed and angulus views were obtained. Antral biopsies were obtained. I noted a small pale lesion which may represent a healing ulcer and this was in the junction between the fundus and the antrum of the stomach along the greater curve. This was removed in its entirety utilizing the hot biopsy forceps polypectomy technique. I withdrew into the cardia of the stomach. I advanced through the catheter balloon. I sequentially dilated the entire length of the esophagus to 54-Tajik. The balloon dilator and gastroscope were then withdrawn. I then readvanced the gastroscope. Cold endoscopic biopsies were obtained at the site of the Schatzki's ring as well as the Z-line to rule out Solomon esophagus. The endoscope was then withdrawn under direct vision. If this dilation process does not help with his volume reflux symptoms, he would be a candidate for a laparoscopic antireflux procedure such as a hiatal hernia repair with a fundoplication. He would require an esophageal manometry and an upper GI diet study prior to undergoing that procedure. I would favor continued medical therapy with his PPI therapy for now, however. TRANSINT:[id number] Voice Confirmation ID: [id number] DOCUMENT ID: [id number] OPERATIVE REPORT [id number] RASHID DON, COLE FAULKNER at 1319 CC: NIEVES GONZALEZ [id number] DICTATION DATE: 11/07/20 1210 PAINT MIXER: 11/07/20 1255 [facility] 11/07/20 [place] [id number] [place] [id number]
== END 2020-11-07 12:40 | disposition home or self-care (01) ==
LOC: D.OPS 07:16
PROVIDERS: Anesthesiology; ATTEND Surgery
DX: K21.9 Gastro-esophageal reflux disease without esophagitis (principal); K44.9 Diaphragmatic hernia without obstruction or gangrene; K29.60 Other gastritis without bleeding; K31.9 Disease of stomach and duodenum, unspecified; K22.2 Esophageal obstruction; J45.909 Unspecified asthma, uncomplicated; F20.9 Schizophrenia, unspecified; R56.9 Unspecified convulsions; N18.6 End stage renal disease; Z99.2 Dependence on renal dialysis